=== PATIENT | female | born 1955 | race Caucasian/White ===

== ENCOUNTER 2018-07-06 07:59 | Day surgery (SDC) | payer OTHER ==
[~2018-07-06 07:59] MED LIST: ACETAMINOPHEN 1,000 MG/100 ML BTL IV ONE; CEFAZOLIN 2 Gram 2 GM/50 ML BAG IVPB ONE
[2018-07-06] MEDS ORDERED: LIDOCAINE 2% MDV (20MG/ML) 20ML VIAL IV ONE (08:00)
[2018-07-06] MEDS ORDERED: EPINEPHRINE 1 MG/ML AMPUL SQ ONE (08:00)
[2018-07-06] MEDS ORDERED: ONDANSETRON HCL IV 4 MG/2 ML VIAL IVP ONE (08:00)
[2018-07-06] MEDS ORDERED: METHYLPREDNISOLONE 40MG/VIAL IM ONE (08:00)
[2018-07-06] MEDS ORDERED: PROPOFOL 10 MG/ML VIAL IV ONE (08:00)
[2018-07-06] MEDS ORDERED: BUPIVACAINE 0.5% (5MG/ML) PF 30ML VIAL IVP ONE (08:00)
[2018-07-06] MEDS ORDERED: BUPIVACAINE 0.5% W/EPI MPF 30 ML VIAL IVP ONE (08:00)
[2018-07-06] MEDS ORDERED: MIDAZOLAM HCL 2MG/2ML VIAL IV ONE ×2 (08:00)
[2018-07-06] MEDS ORDERED: DEXAMETHASONE 4 MG/ML 1ML VIAL IVP ONE ×2 (08:00)
[2018-07-06] MEDS ORDERED: BUPIVACAINE LIPOSOME/PF 133MG/10ML VIAL IV ONE (08:00)
[2018-07-06] MEDS ORDERED: FENTANYL PF 100MCG/2ML VIAL IV ONE (08:00)
[2018-07-06] MEDS ORDERED: SEVOFLURANE 250 ML INH ONE (08:00)
[2018-07-06 08:18] LABS: BASO % 0.7 % (0-6); GRAN % 37.7 % (47-80); HEMATOCRIT 39.9 % (35.0-47.0); HEMOGLOBIN 12.8 gm/dl (11.6-16.0); LYMPH % 52.8 % (16-45); MEAN CELL VOLUME 94.3 fl (81-97); MEAN CORPUSCULAR HEMOGLOBIN 30.3 pg (27-33); MEAN CORPUSCULAR HGB CONC 32.1 g/dl (32-36); MEAN PLATELET VOLUME 9.6 fl (7.4-10.4); MONO % 6.8 % (0-9); PLATELET COUNT 285 K/uL (130-400); RED BLOOD COUNT 4.23 M/uL (3.80-5.40); RED CELL DISTRIBUTION WIDTH 13.4 % (11.5-14.5); WHITE BLOOD COUNT W/O DIFF 7.1 K/uL (4.2-12.2)
[2018-07-06 08:55] LABS: BLOOD UREA NITROGEN 16 mg/dL (8-23); CREATININE 0.8 mg/dL (0.5-0.9); EST GLOMERULAR FILTRATION RATE > 60 mL/min; GLUCOSE,RANDOM 98 mg/dL (74-109)
--- NOTE | 2018-07-06 19:25 | Operative Note ---
DATE OF SURGERY: 07/06/2018 PREOPERATIVE DIAGNOSIS: RIGHT SHOULDER IMPINGEMENT. POSTOPERATIVE DIAGNOSES: 1. 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 2. DIFFUSE SUPERIOR LABRAL TEAR. 3. PROFOUND SUBACROMIAL BURSITIS RIGHT SHOULDER. PROCEDURES: 1. RIGHT SHOULDER ARTHROSCOPY WITH INTRAARTICULAR DEBRIDEMENT. 2. RIGHT SHOULDER OPEN BURSECTOMY. STAFF SURGEON: DR. ZOHAIB WINTER ANESTHESIA: GENERAL. PREPARATION: CHLORAPREP. INDIVIDUAL CONSIDERATIONS: NONE. PROCEDURE: The patient was taken to the Operating Room and placed supine on the operating table. She had a successful induction of a general anesthetic. Her right upper extremity was prepped and then draped in the usual fashion. She was placed in a semi-seated beach chair position. She had a posterior portal identified for arthroscopy. The skin was infiltrated with 0.5% Marcaine with Epinephrine prior. An #18 gauge spinal needle was easily placed in the joint and the joint was inflated with normal saline with a 60 mL syringe. A stab wound was made and a blunt tip trocar for the scope was easily placed inside the joint and the joint was inflated with normal saline. An anterior accessory portal was then made just inferior to where the long head of the biceps tendon would have been in a retrograde fashion with a Wissinger conner and the joint was irrigated out. The patient had basically an absent long head with basically a scarred strand. She had a complex superior labral tear. A shaver was introduced and this was all debrided out. The rotator cuff underneath looked okay. The glenohumeral joint actually looked good. No significant synovitis and nothing in the inferior pouch. Most of the pathology was the strand of the long head stump and the labral tear, which was all debrided. The subscapularis was normal. After irrigation, the portals were closed with chriss. The patient had an anterior approach to the subacromial space and distal clavicle. The skin was again infiltrated with 0.5% Marcaine with Epinephrine prior. Sharp dissection carried down the through skin and subcutaneous tissues. Small veins were coagulated with a Bovie. The previous scar was used and an anterior deltoid interval was developed. Care was taken not to split the deltoid more than about 4 cm distal to the anterior tip of the acromion to prevent injury to the axillary nerve. Once in the subacromial space, there was a very thickened and adherent bursitis. This was all freed up with basically finger dissection and then I resected some thickened areas of bursa, especially anteriorly. The rotator cuff looked contused but there was really no tear. I put it through a full range of motion and there was no significant impingement. There was no need for further acromioplasty. After irrigation, I went ahead and placed about 40 mg of Depo-Medrol with 2 or 3 mL of Marcaine with Epinephrine into the joint through a sterile #25 gauge needle. I placed an #18 gauge spinal needle deep into the subacromial space. The anterior deltoid interval was closed with a running #1 Vicryl. The subcu was closed with #2-0 Plus Vicryl, the skin was closed with a running #3-0 Quill. I then injected about 20 mL of Exparel along with 40 mg of Depo-Medrol into the subacromial space through the # 18 gauge needle and a sterile Bulkee compressive dressing and sling were applied. The patient tolerated the procedure well. Needle and sponge counts were correct, estimated blood loss was minimal, and she was taken back to Recovery in good condition. There were no complications. JOB NUMBER: [id number] MTDD
== END 2018-07-06 12:50 | disposition home or self-care (01) ==
LOC: SUR 07:59
PROVIDERS: ATTEND Orthopaedic Surgery
DX: S46.211A Strain of muscle, fascia and tendon of other parts of biceps, right arm, initial encounter (principal); S43.491A Other sprain of right shoulder joint, initial encounter; M75.51 Bursitis of right shoulder; F17.210 Nicotine dependence, cigarettes, uncomplicated
CPT/HCPCS: 76942; 80048; 85025; 93005; C9290; J0171; J1030; J2405